=== PATIENT | male | born 1990 | race Caucasian/White ===

== ENCOUNTER 2020-05-06 22:20 | Emergency (ER) | payer OTHER ==
[~2020-05-06] VITALS: Ht 180.3 cm; Wt 74.8 kg
--- NOTE | 2020-05-06 22:36 | NUR ---
ED Nurse Note: Patient walked into the ED with c/o skin irritation at right upper back (trapezius) onset 1 week ago. Area is dry and starting to scab, not swelling/reddened. Cause is unkown. Pt stated not showering for days now. Denies fever, n/v. PAtient is AAOX4 and ambulatory. VSS as documented
[2020-05-06 22:40] VITALS: BP 134/87
--- NOTE | 2020-05-06 22:40 | NUR ---
ED Nurse Note: ERMD at bedside
[2020-05-06] MEDS ORDERED: Bacitracin Oint UD TOPIC ONE (23:00)
[2020-05-06] MEDS ORDERED: Tetanus/Diptheria/Pertussis IM ONE (23:00)
--- NOTE | 2020-05-06 23:01 | Emergency Room Report ---
History of Present Illness General Chief Complaint: Skin Rash/Abscess Source: Patient Present Illness HPI Patient presents with a week of a rash in the right shoulder area. He denies fevers or chills. He fell after miss stepping on a stair and scraped his face. He has swelling but denies loss of consciousness. Its been greater than 10 years since his last tetanus shot. He rates the pain in the rash at 1/10 at this time. Patient denies exposure to Covid positive contacts although he mixes with multiple different people. No fevers, chills, sore throat, chest pain, palpitations, nausea, vomiting, diarrhea, dysuria, abdominal pain, shortness of breath, joint pain, depression, anxiety, visual changes, dizziness, headache. Allergies: Coded Allergies: No Known Allergies (Unverified , 05/06/20) COVID-19 Screening Contact w/high risk pt: No Experienced COVID-19 symptoms?: No COVID-19 Testing performed LOBBY ATTENDANT: No Patient History Past Medical History: see triage record Social History: Reports: smoking - Cigars, drug use - THC; Denies: alcohol use Social History Narrative Homeless Reviewed Nursing Documentation: PMH: Agreed; PSxH: Agreed Nursing Documentation-PMH Past Medical History: No Stated History Review of Systems All Other Systems: negative except mentioned in HPI Physical Exam Vital Signs Date Time Temp Pulse Resp B/P (MAP) Pulse Ox O2 Delivery O2 Flow Rate FiO2 05/06/20 22:24 98.4 85 20 134/87 (103) 98 Sp02 EP Interpretation: reviewed, normal General Appearance: well appearing, no apparent distress, GCS 15, non-toxic Head: normocephalic, other - Facial trauma Eyes: bilateral eye normal inspection, bilateral eye PERRL, bilateral eye EOMI ENT: other - Wearing a mask Neck: full range of motion, supple Respiratory: lungs clear, normal breath sounds Cardiovascular #1: regular rate, rhythm Cardiovascular #2: 2+ radial (R) Gastrointestinal: normal inspection Musculoskeletal: gait/station normal Neurologic: alert, motor strength/tone normal, 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 Ralph, have assessed and agree that patient is medically stable for discharge to an outpatient disposition. Diagnostic Impression: Primary Impression: Shingles Qualified Codes: B02.9 - Zoster without complications Additional Impressions: Facial contusion Qualified Codes: S00.83XA - Contusion of other part of head, initial encounter Facial abrasion Qualified Codes: S00.81XA - Abrasion of other part of head, initial encounter ER Course The patient presents with a rash in his right trapezius area. Differential includes cellulitis, abrasion, shingles amongst others. Based on the physical exam this is consistent with shingles. In addition he fell and suffered contusions and abrasions to his face. There was no loss of consciousness. Ther e is no evidence of overt infection at this time or fractures. Topical antibiotics are indicated. Clinical diagnosis is shingles as this involves a single dermatome. Acyclovir is administered. In addition the patient is given a tetanus shot and bacitracin is applied to the abrasions to his face. Discussed treatment plan with patient. No medical emergency at this time. Stable for outpatient observation and treatment. Status: improved Disposition: OTH-HOMELESS Condition: Improved Scripts Bacitracin (Bacitracin) 28.4 Gm Oint...g. 1 APPLIC TOPIC BID, #30 GM Prov: Vincent Ralph MD 05/06/20 Acetaminophen (Tylenol) 325 Mg Tablet 650 MG ORAL Q6H PRN for Prn Pain/Headache/Temp > 101, #20 TAB 0 Refills Prov: Vincent Ralph MD 05/06/20 Acyclovir* (ZOVIRAX*) 800 Mg Tablet 800 MG ORAL FIVE TIMES A DAY, #35 TAB Prov: Vincent Ralph MD 05/06/20 Referrals: NON PHYSICIAN (PCP) Vincent Ralph MD May 06, 2020 23:01
[2020-05-06] MEDS ORDERED: TYLENOL325 MG ORAL (23:03)
[2020-05-06] MEDS ORDERED: ACYCLOVIR800 MG ORAL (23:03)
[2020-05-06] MEDS ORDERED: BACITRACIN15 GM TOPIC (23:03)
[2020-05-06 23:41] VITALS: BP 134/87
--- NOTE | 2020-05-06 23:41 | NUR ---
ER DISCHARGE NOTE: Patient is cleared to be discharged per ERMD, pt is aox4, on room air, with stable vital signs. pt was given dc and prescription instructions, pt was able to verbalize understanding, pt id band removed. pt is able to ambulate with steady gait. pt took all belongings.
== END 2020-05-06 23:43 | disposition other institution (70) ==
LOC: EMR 22:53
DX: B02.9 Zoster without complications (principal); S00.83XA Contusion of other part of head, initial encounter; S00.81XA Abrasion of other part of head, initial encounter; F17.200 Nicotine dependence, unspecified, uncomplicated; F12.90 Cannabis use, unspecified, uncomplicated; W10.9XXA Fall (on) (from) unspecified stairs and steps, initial encounter; Y93.9 Activity, unspecified; Y92.9 Unspecified place or not applicable; Z59.0 Homelessness
CPT/HCPCS: 90471; 90715; Z7502; 99282